=== PATIENT | male | born 1935 | race Caucasian/White ===

== ENCOUNTER 2022-10-12 11:49 | Inpatient (IN) | payer OTHER ==
[2022-10-12 14:18] LABS: BASO % 0.4 % (0-2.0); EOS % 0.5 % (0-4.5); HEMATOCRIT 40.1 % (35.4-49); LYMPH % 8.6 % (8-40); MCH 29.8 pg (25.7-33.7); MCHC 32.5 g/dl (32.0-35.9); MEAN CELL VOLUME 91.8 fl (80-96); MEAN PLT VOLUME 8.5 fl (7.5-11.1); MONO % 12.3 % (3.8-10.2); NEUT % 78.2 % (42.8-82.8); PLATELET COUNT 202 10^3/uL (134-434); RBC 4.37 M/mm3 (4.00-5.60); RDW 14.5 % (11.9-15.9); WHITE BLOOD COUNT 8.5 K/mm3 (4.0-10.0)
[2022-10-12 14:23] LABS: INR 1.76 (0.83-1.09); PROTHROMBIN TIME (PATIENT) 20.4 SEC (9.7-13.0)
[2022-10-12 14:40] LABS: ALBUMIN 3.6 g/dl (3.4-5.0); BLOOD UREA NITROGEN 25.4 mg/dL (7-18); CALCIUM 9.1 mg/dL (8.5-10.1)
[2022-10-12 14:42] LABS: URIC ACID 7.5 mg/dL (2.6-7.2)
[2022-10-12 14:46] LABS: TOT PROT 7.2 g/dl (6.4-8.2)
[2022-10-12 14:49] LABS: BILIRUBIN,TOTAL 1.2 mg/dL (0.2-1); CREATININE 1.1 mg/dL (0.55-1.3)
[2022-10-12 14:53] LABS: ERYTHROCYTE SEDIMENTATION RATE 63 mm/hr (0-20)
[2022-10-12] MEDS ORDERED: ACETAMINOPHEN 500 MG TABLET (FP) PO ONE (16:46)
[2022-10-12] MEDS ORDERED: ACETAMINOPHEN 500 MG TABLET (FP) ONE (17:08)
[2022-10-12] MEDS ORDERED: oxyCODONE HCL 5 MG TABLET PO PRN (17:43)
[2022-10-12 19:19] LABS: BF WBC & OTHER NUCLEATED CELLS 17723 /mm3
[2022-10-12 22:13] LABS: BODY FLUID MONOCYTE 2 %
[2022-10-12 22:36] LABS: CRYSTALS,SYNOVIAL FLUID NEGATIVE
[2022-10-12] MEDS ORDERED: levETIRAcetam 500 MG TABLET (FP) PO ONE (23:57)
[2022-10-13] MEDS: LEVOTHYROXINE 112 MCG, LEVOTHYROXINE 25 MCG PO SCH (06:41)
[2022-10-13 09:24] LABS: BASO % 0.3 % (0-2.0); EOS % 0.3 % (0-4.5); HEMATOCRIT 38.5 % (35.4-49); HEMOGLOBIN 12.6 GM/dL (11.7-16.9); MCHC 32.9 g/dl (32.0-35.9); MEAN CELL VOLUME 91.2 fl (80-96); MEAN PLT VOLUME 8.3 fl (7.5-11.1); MONO % 14.2 % (3.8-10.2); NEUT % 73.2 % (42.8-82.8); PLATELET COUNT 191 10^3/uL (134-434); RBC 4.22 M/mm3 (4.00-5.60); RDW 14.5 % (11.9-15.9); WHITE BLOOD COUNT 6.6 K/mm3 (4.0-10.0)
[2022-10-13 09:50] LABS: ALBUMIN 3.1 g/dl (3.4-5.0)
[2022-10-13 09:52] LABS: CALCIUM 8.6 mg/dL (8.5-10.1)
[2022-10-13 09:53] LABS: BILIRUBIN,TOTAL 1.7 mg/dL (0.2-1); BLOOD UREA NITROGEN 20.6 mg/dL (7-18); MAGNESIUM 1.9 mg/dL (1.8-2.4); TOT PROT 6.5 g/dl (6.4-8.2)
[2022-10-13 09:54] LABS: PHOSPHOROUS 2.7 mg/dL (2.5-4.9)
[2022-10-13] MEDS: levETIRAcetam 500 MG TABLET (FP) PO SCH ×3 (09:56→22:59)
[2022-10-13] MEDS: ENOXAPARIN NA (PORCINE) 40 MG/0.4 ML DISP.SYRIN SQ SCH (09:56)
[2022-10-13] MEDS ORDERED: LEVOTHYROXINE NA 125 MCG TABLET (FP) PO SCH (10:00)
[2022-10-13] MEDS ORDERED: PATIENT'S OWN MEDICATION (NON-FORMULARY) (Budesonide 3 MG Cap.Sr.24h) PO SCH (10:00)
[2022-10-13] MEDS: ACETAMINOPHEN 325 MG TABLET (FP) PO PRN (15:30)
[2022-10-13] MEDS: CEFAZOLIN 1 GM in DEXTROSE 5%-WATER - 50 ML IVPB SCH (17:12)
[2022-10-13 17:18] LABS: EPI CELLS 4 /uL (0-25.1); HYALINE CASTS 1 /uL (0-3.1); PH,URINE 5.5 (5.0-8.0); URINE APPEARANCE CLEAR; URINE BACTERIA 0 /uL (0-1359); URINE BILIRUBIN NEGATIVE (NEGATIVE); URINE COLOR DK YELLOW; URINE GLUCOSE (UA) NEGATIVE (NEGATIVE); URINE KETONE TRACE (NEGATIVE); URINE LEUK ESTERASE NEGATIVE (NEGATIVE); URINE NITRITE NEGATIVE (NEGATIVE); URINE PROTEIN 2+ (NEGATIVE); URINE WBC 9 /uL (0-25.8)
[2022-10-13] MEDS: AMINO ACIDS/PROTEIN HYDROLYS 30 ML LIQUID.PKT PO SCH (17:30)
[2022-10-13 20:21] LABS: URINE RBC 29.1 /uL (0-23.9)
[2022-10-14] MEDS: CEFAZOLIN 1 GM in DEXTROSE 5%-WATER - 50 ML IVPB SCH ×3 (00:36→18:05)
[2022-10-14] MEDS: LEVOTHYROXINE 112 MCG, LEVOTHYROXINE 25 MCG PO SCH (06:16)
[2022-10-14] MEDS: ENOXAPARIN NA (PORCINE) 40 MG/0.4 ML DISP.SYRIN SQ SCH (09:02)
[2022-10-14] MEDS: AMINO ACIDS/PROTEIN HYDROLYS 30 ML LIQUID.PKT PO SCH ×2 (09:02→18:05)
[2022-10-14] MEDS: levETIRAcetam 500 MG TABLET (FP) PO SCH ×2 (09:02→21:32)
[2022-10-14] MEDS: MULTIVITAMINS (DAILY MVI) TABLET (FP) PO SCH (09:03)
[2022-10-14 10:14] LABS: BASO % 0.3 % (0-2.0); EOS % 0.2 % (0-4.5); HEMATOCRIT 37.7 % (35.4-49); HEMOGLOBIN 12.6 GM/dL (11.7-16.9); LYMPH % 8.2 % (8-40); MCH 30.3 pg (25.7-33.7); MCHC 33.4 g/dl (32.0-35.9); MEAN CELL VOLUME 90.8 fl (80-96); MEAN PLT VOLUME 8.2 fl (7.5-11.1); MONO % 10.8 % (3.8-10.2); NEUT % 80.5 % (42.8-82.8); PLATELET COUNT 206 10^3/uL (134-434); RBC 4.15 M/mm3 (4.00-5.60); RDW 14.3 % (11.9-15.9); WHITE BLOOD COUNT 9.8 K/mm3 (4.0-10.0)
[2022-10-14 10:40] LABS: ALBUMIN 2.7 g/dl (3.4-5.0); BLOOD UREA NITROGEN 31.8 mg/dL (7-18); CALCIUM 8.6 mg/dL (8.5-10.1); MAGNESIUM 1.9 mg/dL (1.8-2.4)
[2022-10-14 10:43] LABS: CREATININE 1.3 mg/dL (0.55-1.3)
[2022-10-14 10:44] LABS: TOT PROT 6.3 g/dl (6.4-8.2)
[2022-10-14] MEDS: POTASSIUM CHLORIDE ORAL LIQUID 20 MEQ/15 ML PO SCH ×2 (11:28→18:05)
[2022-10-15] MEDS: CEFAZOLIN 1 GM in DEXTROSE 5%-WATER - 50 ML IVPB SCH ×3 (00:50→16:11)
[2022-10-15] MEDS: LEVOTHYROXINE 112 MCG, LEVOTHYROXINE 25 MCG PO SCH (06:53)
[2022-10-15] MEDS: AMINO ACIDS/PROTEIN HYDROLYS 30 ML LIQUID.PKT PO SCH ×2 (09:03→17:50)
[2022-10-15] MEDS: ENOXAPARIN NA (PORCINE) 40 MG/0.4 ML DISP.SYRIN SQ SCH (09:03)
[2022-10-15] MEDS: levETIRAcetam 500 MG TABLET (FP) PO SCH ×2 (09:04→23:27)
[2022-10-15] MEDS: MULTIVITAMINS (DAILY MVI) TABLET (FP) PO SCH (09:04)
[2022-10-15 11:09] LABS: BASO % 0.2 % (0-2.0); EOS % 0.2 % (0-4.5); HEMATOCRIT 38.4 % (35.4-49); HEMOGLOBIN 12.5 GM/dL (11.7-16.9); LYMPH % 8.1 % (8-40); MCH 29.9 pg (25.7-33.7); MCHC 32.4 g/dl (32.0-35.9); MEAN PLT VOLUME 8.4 fl (7.5-11.1); MONO % 4.7 % (3.8-10.2); NEUT % 86.8 % (42.8-82.8); PLATELET COUNT 222 10^3/uL (134-434); RBC 4.17 M/mm3 (4.00-5.60); RDW 14.5 % (11.9-15.9); WHITE BLOOD COUNT 9.3 K/mm3 (4.0-10.0)
[2022-10-15 11:39] LABS: CALCIUM 8.4 mg/dL (8.5-10.1)
[2022-10-15 11:40] LABS: ALBUMIN 2.5 g/dl (3.4-5.0); BLOOD UREA NITROGEN 29.1 mg/dL (7-18)
[2022-10-15 11:43] LABS: CREATININE 1.2 mg/dL (0.55-1.3)
[2022-10-15 11:44] LABS: BILIRUBIN,TOTAL 0.9 mg/dL (0.2-1)
[2022-10-15] MEDS: SODIUM CHLORIDE 0.45%/POT 20 MEQ/1,000 ML INFUS.BAG IV SCH ×2 (12:25→23:26)
[2022-10-15] MEDS: POTASSIUM CHLORIDE TABS 20 MEQ TABLET.ER (FP) PO SCH ×3 (12:25→23:28)
[2022-10-15] MEDS: ACETAMINOPHEN 325 MG TABLET (FP) PO PRN (12:26)
[2022-10-16] MEDS: LEVOTHYROXINE 112 MCG, LEVOTHYROXINE 25 MCG PO SCH (07:57)
[2022-10-16] MEDS ORDERED: levETIRAcetam 250 MG TABLET PO ONE (09:55)
[2022-10-16] MEDS: MULTIVITAMINS (DAILY MVI) TABLET (FP) PO SCH (10:01)
[2022-10-16] MEDS: ENOXAPARIN NA (PORCINE) 40 MG/0.4 ML DISP.SYRIN SQ SCH (10:01)
[2022-10-16] MEDS: AMINO ACIDS/PROTEIN HYDROLYS 30 ML LIQUID.PKT PO SCH ×2 (10:01→17:39)
[2022-10-16 10:28] LABS: BASO % 0.3 % (0-2.0); EOS % 1.2 % (0-4.5); HEMATOCRIT 36.1 % (35.4-49); HEMOGLOBIN 11.8 GM/dL (11.7-16.9); LYMPH % 7.6 % (8-40); MCH 30.1 pg (25.7-33.7); MCHC 32.7 g/dl (32.0-35.9); MEAN CELL VOLUME 92.3 fl (80-96); MEAN PLT VOLUME 8.7 fl (7.5-11.1); MONO % 6.3 % (3.8-10.2); NEUT % 84.6 % (42.8-82.8); PLATELET COUNT 235 10^3/uL (134-434); RBC 3.92 M/mm3 (4.00-5.60); RDW 14.3 % (11.9-15.9); WHITE BLOOD COUNT 9.8 K/mm3 (4.0-10.0)
[2022-10-16] MEDS: levETIRAcetam 500 MG TABLET (FP) PO SCH ×2 (10:53→21:35)
[2022-10-16 10:55] LABS: CALCIUM 8.3 mg/dL (8.5-10.1)
[2022-10-16 10:56] LABS: ALBUMIN 2.3 g/dl (3.4-5.0); BLOOD UREA NITROGEN 27.4 mg/dL (7-18); MAGNESIUM 1.9 mg/dL (1.8-2.4)
[2022-10-16 10:59] LABS: CREATININE 0.9 mg/dL (0.55-1.3)
[2022-10-16 11:00] LABS: BILIRUBIN,TOTAL 1.1 mg/dL (0.2-1)
[2022-10-16 11:02] LABS: TOT PROT 5.8 g/dl (6.4-8.2)
[2022-10-16] MEDS: SODIUM CHLORIDE 0.45%/POT 20 MEQ/1,000 ML INFUS.BAG IV SCH ×2 (11:29→23:10)
[2022-10-17] MEDS: LEVOTHYROXINE 112 MCG, LEVOTHYROXINE 25 MCG PO SCH (06:06)
[2022-10-17] MEDS: AMINO ACIDS/PROTEIN HYDROLYS 30 ML LIQUID.PKT PO SCH ×2 (08:57→17:25)
[2022-10-17] MEDS: ENOXAPARIN NA (PORCINE) 40 MG/0.4 ML DISP.SYRIN SQ SCH (09:30)
[2022-10-17] MEDS: levETIRAcetam 500 MG TABLET (FP) PO SCH ×2 (09:30→22:17)
[2022-10-17 09:31] LABS: BASO % 0.3 % (0-2.0); EOS % 2.2 % (0-4.5); HEMATOCRIT 37.3 % (35.4-49); HEMOGLOBIN 12.2 GM/dL (11.7-16.9); LYMPH % 7.1 % (8-40); MCH 30.2 pg (25.7-33.7); MCHC 32.8 g/dl (32.0-35.9); MEAN CELL VOLUME 92.1 fl (80-96); MEAN PLT VOLUME 8.3 fl (7.5-11.1); NEUT % 83.4 % (42.8-82.8); PLATELET COUNT 262 10^3/uL (134-434); RBC 4.05 M/mm3 (4.00-5.60); RDW 14.6 % (11.9-15.9); WHITE BLOOD COUNT 9.7 K/mm3 (4.0-10.0)
[2022-10-17] MEDS: MULTIVITAMINS (DAILY MVI) TABLET (FP) PO SCH (09:31)
[2022-10-17 09:49] LABS: CALCIUM 8.5 mg/dL (8.5-10.1)
[2022-10-17 09:51] LABS: ALBUMIN 2.4 g/dl (3.4-5.0); BLOOD UREA NITROGEN 22.3 mg/dL (7-18)
[2022-10-17 09:53] LABS: CREATININE 0.9 mg/dL (0.55-1.3)
[2022-10-17 09:55] LABS: BILIRUBIN,TOTAL 1.5 mg/dL (0.2-1)
[2022-10-17] MEDS ORDERED: LACTOBACILLUS ACIDOPHILUS 1 TABLET PO ONE (13:11)
[2022-10-17] MEDS ORDERED: PANTOPRAZOLE 40 MG TABLET PO ONE (17:05)
[2022-10-17] MEDS: metoPROLOL SUCCINATE 25 MG TAB.SR.24H (FP) PO SCH (18:40)
[2022-10-17] MEDS: APIXABAN 5 MG TABLET PO SCH (22:17)
[2022-10-18] MEDS: LEVOTHYROXINE 112 MCG, LEVOTHYROXINE 25 MCG PO SCH (06:30)
[2022-10-18 09:09] LABS: BASO % 0.2 % (0-2.0); EOS % 1.2 % (0-4.5); LYMPH % 7.1 % (8-40); MCH 30.3 pg (25.7-33.7); MCHC 33.3 g/dl (32.0-35.9); MEAN PLT VOLUME 8.4 fl (7.5-11.1); MONO % 5.4 % (3.8-10.2); NEUT % 86.1 % (42.8-82.8); PLATELET COUNT 288 10^3/uL (134-434); RBC 3.96 M/mm3 (4.00-5.60); RDW 14.4 % (11.9-15.9); WHITE BLOOD COUNT 11.2 K/mm3 (4.0-10.0)
[2022-10-18] MEDS: AMINO ACIDS/PROTEIN HYDROLYS 30 ML LIQUID.PKT PO SCH ×2 (11:27→18:31)
[2022-10-18] MEDS: APIXABAN 5 MG TABLET PO SCH ×2 (11:27→22:22)
[2022-10-18] MEDS: levETIRAcetam 500 MG TABLET (FP) PO SCH ×2 (11:27→22:22)
[2022-10-18] MEDS: MULTIVITAMINS (DAILY MVI) TABLET (FP) PO SCH (11:27)
[2022-10-18] MEDS: metoPROLOL SUCCINATE 25 MG TAB.SR.24H (FP) PO SCH (11:28)
[2022-10-18 12:13] LABS: BLOOD UREA NITROGEN 25.9 mg/dL (7-18); CALCIUM 8.5 mg/dL (8.5-10.1)
[2022-10-18 12:14] LABS: ALBUMIN 2.3 g/dl (3.4-5.0); MAGNESIUM 2.1 mg/dL (1.8-2.4)
[2022-10-18 12:17] LABS: CREATININE 0.9 mg/dL (0.55-1.3)
[2022-10-18 12:18] LABS: TOT PROT 5.8 g/dl (6.4-8.2)
[2022-10-18] MEDS ORDERED: levETIRAcetam 250 MG TABLET PO ONE (21:31)
[2022-10-18 21:53] VITALS: RESP 20
[2022-10-19] MEDS: LEVOTHYROXINE 112 MCG, LEVOTHYROXINE 25 MCG PO SCH (06:19)
[2022-10-19 10:23] LABS: BASO % 0.3 % (0-2.0); EOS % 1.5 % (0-4.5); HEMATOCRIT 37.2 % (35.4-49); HEMOGLOBIN 12.2 GM/dL (11.7-16.9); LYMPH % 6.1 % (8-40); MCHC 32.9 g/dl (32.0-35.9); MEAN CELL VOLUME 91.5 fl (80-96); MEAN PLT VOLUME 8.5 fl (7.5-11.1); MONO % 4.7 % (3.8-10.2); NEUT % 87.4 % (42.8-82.8); PLATELET COUNT 318 10^3/uL (134-434); RBC 4.07 M/mm3 (4.00-5.60); RDW 14.4 % (11.9-15.9); WHITE BLOOD COUNT 11.5 K/mm3 (4.0-10.0)
[2022-10-19 10:57] LABS: CALCIUM 8.4 mg/dL (8.5-10.1); MAGNESIUM 2.1 mg/dL (1.8-2.4)
[2022-10-19 10:58] LABS: ALBUMIN 2.3 g/dl (3.4-5.0); BLOOD UREA NITROGEN 28.3 mg/dL (7-18)
[2022-10-19 11:00] LABS: CREATININE 0.8 mg/dL (0.55-1.3); URIC ACID 3.6 mg/dL (2.6-7.2)
[2022-10-19 11:03] LABS: BILIRUBIN,TOTAL 0.8 mg/dL (0.2-1); TOT PROT 5.9 g/dl (6.4-8.2)
[2022-10-19 11:10] VITALS: TEMP 98
[2022-10-19] MEDS ORDERED: POTASSIUM CHLORIDE TABS 20 MEQ TABLET.ER (FP) PO ONE (11:11)
[2022-10-19] MEDS: AMINO ACIDS/PROTEIN HYDROLYS 30 ML LIQUID.PKT PO SCH (11:49)
[2022-10-19] MEDS: metoPROLOL SUCCINATE 25 MG TAB.SR.24H (FP) PO SCH (11:49)
[2022-10-19] MEDS: levETIRAcetam 500 MG TABLET (FP) PO SCH (11:50)
[2022-10-19] MEDS: APIXABAN 5 MG TABLET PO SCH (11:52)
[2022-10-19] MEDS: MULTIVITAMINS (DAILY MVI) TABLET (FP) PO SCH (11:52)
[2022-10-19 15:21] VITALS: BP 133/75; PULSE 112
[2022-10-19] MEDS ORDERED: metoPROLOL SUCCINATE 25 MG TAB.SR.24H (FP) PO SCH (15:43)
== END 2022-10-19 15:47 | DRG 565 ==
LOC: JERFT 11:49 → JERBED 17:24 → OBSVTOIN 17:43 → J8W 10-13 02:03 → JERBED 10-13 05:05 → J8W 10-13 05:06
PROVIDERS: ADMIT Internal Medicine; ATTEND Nurse Practitioner Family
PROC: 0S9D3ZZ Drainage of Left Knee Joint, Percutaneous Approach (ICD-10-PCS; principal; 2022-10-12)
DX: M25.462 Effusion, left knee (principal); E46 Unspecified protein-calorie malnutrition; N17.9 Acute kidney failure, unspecified; I10 Essential (primary) hypertension; I25.10 Atherosclerotic heart disease of native coronary artery without angina pectoris; K58.9 Irritable bowel syndrome, unspecified; E03.9 Hypothyroidism, unspecified; R05.9 Cough, unspecified; M10.9 Gout, unspecified; K80.20 Calculus of gallbladder without cholecystitis without obstruction; G40.909 Epilepsy, unspecified, not intractable, without status epilepticus; R50.9 Fever, unspecified; Z68.20 Body mass index [BMI] 20.0-20.9, adult
CPT/HCPCS: 0241U-QW; 36415; 71046-TC-FY; 73562-TC-LT-FY; 73700-TC-RT; 76705-TC; 80053; 80061; 81003; 83615; 83735; 84100; 84484; 84550; 84560; 85025; 85610; 85651; 86140; 86850; 86900; 86901; 87040; 87070; 87075; 87086; 87205; 87324; 87449; 89060; 93005; 93010; 97116-GP; 97161-GP; 99285-25; C9803-CS; G0378; J3480; U0003; U0005